=== PATIENT | female | born 1965 | race Two or more races ===

== ENCOUNTER → 2016-08-25 | Outpatient (CLI) | payer OTHER ==
[~2016-08-25] MED LIST: ACETA PO; BACL10TA2 PO; CLON0.5T PO; DICL75TA PO; FLUT11IN INH; HYDROCODONE PO; IBUPPOW25 PO; MOBI15TA PO; NAPR250T PO; NEUR300C PO; PROAAER IN; PROZ10CA7 PO; ROBA750T4 PO; SOMA250T PO; STRA10CA PO; ULTR50TA PO; ZANA4TAB PO; ZEST20TA8 PO; [UNRECOGNIZED DRUG - CODE] PO
--- NOTE | 2016-08-30 23:41 | ECWPNPC ---
PATIENT NAME: HARRIS HALL : 1965 GENDER: FEMALE VISIT DATE: 08/25/2016 DISCHARGE DATE: 08/25/16 1507 VISIT LOCKED DATE TIME: PHYSICIAN: ELENA SILVESTRE RESOURCE: ELENA SILVESTRE REASON FOR APPOINTMENT 1. NECK/BACK PAIN HISTORY OF PRESENT ILLNESS NEW PATIENT CONSULT: WHEN DID YOUR PAIN FIRST START? . BRIEFLY DESCRIBE HOW YOUR PAIN STARTED? . HOW DOES YOUR PAIN CHANGE WITH TIME? . DOES YOUR PAIN AWAKEN YOU FROM SLEEP? . HOW MANY HOURS OF SLEEP DO YOU NORMALLY GET? . ANY DIAGNOSTIC TESTING? . FACILITY WHERE TESTS WERE DONE? ____. PAIN TREATMENT TREATMENT YES CANCER HAVE YOU EVER HAD ANY TYPE OF CANCER?NO NO. PAIN SCREENING: PATIENT HAS A COMPLAINT OF ACUTE OR CHRONIC PAIN YES FALL RISK SCREENING: SCREENING :NO FALLS IN THE PAST YEAR ANDINO INVENTORY: QUESTIONNAIRE ASSESSEDYES SCORE VALUE CALCULATED NO SCORE: PT DID NOT COMPLETE BECKS. DENIES THOUGHTS OF SELF INJURY. STATES SHE FOLLOWS CLOSELY WITH HER PMD TODAY'S VISIT: NOTES: PATIENT WAS PREVIOUSLY FOLLOWED IN OUR PRACTICE BY DR. Cordell LEWIS AND OTONIEL WALLER-Maverick UNDER THE NAME HARRIS DEJESUS. SHE IS REFERRED TODAY BY HEBERT LECHUGA AT [facility] FOR NECK AND BACK PAIN. IS NOTING PAIN IN JOINTS OF HANDS AND LEFT KNEE. NOTES ARMS ARE WEAK IF REACHING OVER EHAD. LEGS GET TIRED WITH WALKING. ONSET OF INCREASED PAIN AND WEAKNESS SINCE LAST MARCH. HAS HAD NO TRAUMAS OR INJURIES. HAS NERVE CONDUCTION STUDY SCHEDULED FOR 09/25/15 AT OR[facility] AND FOLLOWUP IS SCHEDULED. HAS NUMBNESS AND TINGLING IN UPPER AND LOWER EXTREMITES. IS TAKING IBUPROFEN DAILY. TAKES SOME DOANS PILLS FOR PAIN WHICH CAN HELD WHICH CAN HELP. HAS PREVIOUS TRIED PT BUT HAD NO RELIEF. HAS HAD PREVIOUS INJECTION THERAPY BUT DID NOT RETURN WHEN RECENTLY AFTER LAST TREATMENT.. CURRENT MEDICATIONS TAKING METHOCARBAMOL 500 MG TABLET 1.5 TABLETS ORALLY EVERY 4 HRS TAKING VENTOLIN HFA 108 (90 BASE) MCG/ACT AEROSOL SOLUTION 2 PUFFS NEEDED INHALATION EVERY 4 HRS TAKING FLOVENT HFA 220 MCG/ACT AEROSOL 1 PUFF INHALATION TWICE A DAY TAKING KLONOPIN 1 MG TABLET 1 TABLET ORALLY QID TAKING MOBIC 15 MG TABLET 1 TABLET ORALLY ONCE A DAY TAKING GABAPENTIN 300 MG CAPSULE ORALLY TID TAKING METOPROLOL SUCCINATE 50 MG TABLET EXTENDED RELEASE ORALLY NOT-TAKING LISINOPRIL 5 MG TABLET ORALLY NOT-TAKING STRATTERA 60 MG CAPSULE 1 CAPSULE IN THE MORNING ORALLY ONCE A DAY MEDICATION LIST REVIEWED AND RECONCILED WITH THE PATIENT PAST MEDICAL HISTORY HYPERTENSION ANXIETY DEPRESSION ASTHMA PANIC DISORDER ADD ALLERGIES LAAVENDAR: RASH/SWELLING SURGICAL HISTORY TUBAL LIGATION FAMILY HISTORY FATHER: ARTHRITIS,CANCER,HEART DISEASE, THYROID DISEASEMOTHER: ARTHRITIS, CANCER,DIABETES, HYPERTENSION. SOCIAL HISTORY GENERAL: TOBACCO USE ARE YOU A:CURRENT SMOKER HOW MANY CIGARETTES A DAY DO YOU SMOKE?11-20 HOW SOON AFTER YOU WAKE UP DO YOU SMOKE YOUR FIRST CIGARETTE?6-30 MIN HOW OFTEN DO YOU SMOKE CIGARETTES?EVERY DAY PATIENT COUNSELED ON THE DANGERS OF TOBACCO USE AND URGED TO QUIT:08/25/2016 ARE YOU INTERESTED IN QUITTING?NOT READY TO QUIT COUNSELED THE PATIENT ON SMOKING EFFECTS, EDUCATION [id number]/17/2017 RECREATIONAL DRUG USE DRUG USE?NO CAFFEINE CAFFEINE USE?YES HOW OFTEN AND HOW MUCH? A CUP A DAY PSYCHOLOGICAL HX TREATMENTNO PAIN CLINIC PFS, CLERGY, PUBLIC HEALTH REFERRALS CLERGY REFERRAL NEEDED?NO WAS THE PROVIDER NOTIFIED OF ANY PERTINENT INFO?NO PFS REFERRAL NEEDED?NO PUBLIC HEALTH REFERRAL NEEDED?NO PATIENT: ____. ADVANCED DIRECTIVES HEALTH CARE PROXY?NO POWER OF AGRICULTURAL AND FORESTRY SUPERVISOR?NO HOSPITALIZATION/MAJOR DIAGNOSTIC PROCEDURE NO HOSPITALIZATION HISTORY. REVIEW OF SYSTEMS CONSTITUTIONAL: ANY CHANGE IN YOUR MEDICAL CONDITION? YES INCREASE TINGILING IN HANDS/ UNABLE TO LIFT . CHILLS NO . FEVER NO . INFECTION: DO YOU HAVE NEW INFECTIONS? NO . DO YOU HAVE HISTORY OF MRSA? NO . MUSCULOSKELETAL: ANY NEW PATTERNS OF PAIN OR NUMBNESS? YES . SYTEMIC LUPUS NO . GASTROENTEROLOGY: ANY NEW CHANGE IN BOWEL CONTROL? NO . BARRETTS ESOPHAGUS NO . CIRRHOSIS NO . HEPATITIS NO . LIVER FAILURE NO . ACID REFLUX NO . UNEXPLAINED WEIGHT LOSS NO . GENITOURINARY: ANY NEW CHANGE IN BLADDER CONTROL? NO . IS THERE A CHANCE YOU COULD BE ? NO . HEMATOLOGY/LYMPH: DO YOU TAKE ANY BLOOD THINNERS? (FOR EXAMPLE- COUMADIN, PLAVIX, AGGRENOX, PLATEL, PRADAXA, OR XARELTO) NO . WHEN WAS YOUR LAST DOSE? DATE: TIME: . LOW PLATELET COUNT NO . SICKLE CELL DISEASE NO . VON WILLIEBRANDS NO . FACTOR V LEIDEN NO . THALLASEMIA NO . ANEMIA NO . EASY BRUISING NO . NEUROLOGY: HAVE YOU FALLEN IN THE PAST 6 MONTHS? NO . ANY NEW EXTREMITY NUMBNESS OR WEAKNESS? NO . HEAD INJURY NO . DEMENTIA NO . CEREBRAL PALSY NO . MULTIPLE SCLEROSIS NO . DIZZINESS NO . HEADACHE NO . STROKES NO . VERTIGO NO . CARDIOLOGY: DO YOU HAVE A PACEMAKER OR DEFIBRILLATOR? NO . ANGINA NO . HEART ATTACK NO . HEART SURGERY NO . CONGESTIVE HEART FAILURE/FLUID OVERLOAD NO . CHEST PAIN NO . HIGH BLOOD PRESSURE NO . IRREGULAR HEART BEAT NO . RESPIRATORY: HAVE YOU BEEN SICK IN THE PAST WEEK? YES &QUOT; A SLIGHT COLD&QUOT; . FEVER NO . FLU LIKE SYMPTOMS? NO . CPAP NO . BYPAP NO . ASTHMA NO . EMPHYSEMA NO . CHRONIC LUNG DISEASES NO . SHORTNESS OF BREATH ON EXERTION NO . DO YOU USE ANY TYPE OF TOBACCO (SMOKE, SMOKELESS, CHEW)? YES - 1 PACK PER DAY . COUGH NO . SNORING NO . INTEGUMENTARY: DO YOU HAVE ANY RASHES OR OPEN SORES? YES - BACK OF NECK HANDS . ALLERGIC/IMMUNO: ARE YOU ALLERGIC TO SHELLFISH OR IV DYE? NO . ANY NEW ALLERGIES? NO . PSYCHIATRIC: DO YOU HAVE THOUGHTS OF HURTING YOURSELF OR SOMEONE ELSE? NO . ARE YOU ABUSED, NEGLECTED, OR IN AN UNSAFE ENVIRONMENT? NO . ENDOCRINOLOGY: ARE YOU DIABETIC? NO . THYROID DISORDER NO . OTHER: DO YOU NEED ANY PRESCRIPTIONS? NO . IF YES, PLEASE LIST: ____ . ANY NEW PROBLEMS WITH YOUR MEDICATIONS? NO . WHEN DID YOU LAST EAT? ____ . WHEN DID YOU LAST DRINK? ____ . WHAT DID YOU LAST DRINK? ____ . NAME OF PERSON DRIVING YOU HOME? ____ . DO YOU HAVE ANY OTHER QUESTIONS OR CONCERNS NO . PSYCHOLOGY: ANXIETY FOLLOWED BY DR CLEMENTINA GÓMEZ FOR PANIC ATTACKS . REVIEWED BY: PROVIDER: ELENA WALLER . VITAL SIGNS WT 153.6 LBS, HT 64 IN, BMI 26.36 INDEX, BP 120/74 MM HG, HR 88 /MIN, RR 18 /MIN, TEMP 98.0 F, OXYGEN SAT % 91%, REVIEWED BY: KGU. EXAMINATION GENERAL EXAMINATION: GENERAL APPEARANCE:MULTIPLE TATTOES. . PSYCHALERT , ORIENTED X 3 , PRESSURED SPEECH, VERY TALKATIVE - HARD TO KEEP ON SUBJECT. HEENT:NORMOCEPHALIC, NO LYMPHADENOPATHY, NO THYROMEGLY. LUNGS:CLEAR TO AUSCULTATION BILATERALLY, NO WHEEZES, RALES OR RHONCHI. HEART:HEART RATE REGULAR, NORMAL S1S2, NO MURMURS, CLICK OR RUBS, NO CAROTID BRUITS. MUSCULOSKELETAL:MUSCLE STRENGTH TESTING 5/5 BILATERAL UPPER AND LOWER EXTREMITIES. ABLE TO FLEX TO 90 DEGREES, EXTEND TO 20 DEGREES, NOTES PAIN IN NECK AND LOW BACK WITH ROTATION. TENDER WITH PALPATION OVER CERVICAL AND LUMBAR SPINOUS PROCESSES. , TRIGGER POINTS AND TIGHT FIBROUS BANDS IDENTIFIED OVER BILATERAL TRAPEZIUS MUSCLES AND ACROSS THE LUMBOSACRAL AXIS. NO SPECIFIC PAIN WITH SLR. NO PAIN WITH PELVIC COMPRESSION.. NEUROLOGIC EXAM:NO SENSORRY DEFICEIT TO LIGHT TOUCH. DTR'S 2+ BILATERAL UPPER AND LOWER EXTREMITIES. DIAGNOSTIC TESTS REVIEWEDXRAY OF LUMBAR SPINE COMPLETED 03/08/13 DEMONSTRATED DEGENERATIVE CHANGES WITH OSTEOPHYTES PRESENT FROM L3 THROUGH S1. MRI OF LUMBAR SPINE COMPLETED 06/30/16 DEMONSTRATED CENTRAL CANAL STENOSIS AT THE L4-5 LEVEL SECONDARY TO DISC BULGE, LIGAMENTOUS AND FACET HYPERTROPHY. THERE IS ALSO A DIFFUSE DISC BULGE AT THE L5-S1 LEVEL WITH MINIMAL THECAL SAC COMPRESSION. MRI OF CERVICAL SPINE COMPLETED ON 06/30/16 DEMONSTRATES CERVICAL SPONDYLOSIS AT THE C3-4 THROUGH C6-7 LEVELS MOST SIGNIFICANT AT THE C5-6 LEVEL WHERE THERE IS MINIMAL SPINAL COLD COMPRESSION. ASSESSMENTS LUMBAR FACET ARTHROPATHY - M12.88 (PRIMARY) LUMBAR DISC DISPLACEMENT WITHOUT MYELOPATHY - M51.26 OTHER CERVICAL DISC DISPLACEMENT AT C5-C6 LEVEL - M50.222 OTHER CERVICAL DISC DISPLACEMENT AT C6-C7 LEVEL - M50.223 OSTEOARTHRITIS OF MULTIPLE JOINTS, UNSPECIFIED OSTEOARTHRITIS TYPE - M15.9 FIBROMYALGIA - M79.7 TREATMENT LUMBAR FACET ARTHROPATHY REFILL GABAPENTIN TABLET, 400 MG, 1 TABLET, ORALLY, TID, 30 DAY(S), 90 TABLET, REFILLS 1 START DULOXETINE HCL CAPSULE DELAYED RELEASE PARTICLES, 30 MG, 1 CAPSULE, ORALLY, DAILY, 30 DAY(S), 30 CAPSULE, REFILLS 1 NOTES: WALK EVERY DAY. AIM FOR A DISTANCE OF 100 YARDS DAILY. KEEP CROCHETING. LUMBAR DISC DISPLACEMENT WITHOUT MYELOPATHY CAUDAL/LUMBAR EPIDURALELENA SILVESTRE 08/25/2016 2:49:51 PM > INTRALAMINAL PROCEDURE CODES FA211 ESTABILISHED PATIENT [facility] CHARGE DISPOSITION & COMMUNICATION FOLLOW UP AFTER INJECTION (REASON: CHECK AUTH FOR [facility] - INTRALAMINAL APPROACH) ELECTRONICALLY SIGNED BY MANINDER GEORGE ON 08/30/2016 AT 01:20 PM EDT DISCLAIMER : THIS IS A VISIT SUMMARY EXTRACTED FROM THE [employer]ICAL[employer] CHART. IT IS NOT A COPY OF THE [employer] PROGRESS NOTE. MTDD
== END ==
LOC: M PAIN 13:20
PROVIDERS: ATTEND Nurse Practitioner Family
DX: M12.88 Other specific arthropathies, not elsewhere classified, other specified site (principal); M51.26 Other intervertebral disc displacement, lumbar region; M50.222 Other cervical disc displacement at C5-C6 level; M50.223 Other cervical disc displacement at C6-C7 level; M79.7 Fibromyalgia; Z79.899 Other long term (current) drug therapy; Z91.048 Other nonmedicinal substance allergy status

== ENCOUNTER → 2016-09-04 | Outpatient (CLI) | payer OTHER ==
--- NOTE | 2016-09-04 23:20 | ECWPNPC ---
PATIENT NAME: HARRIS DELGADO : 1965 GENDER: FEMALE VISIT DATE: 09/04/2016 DISCHARGE DATE: 09/04/16 0000 VISIT LOCKED DATE TIME: PHYSICIAN: ELENA SILVESTRE RESOURCE: ELENA SILVESTRE REASON FOR APPOINTMENT 1. MEDS HISTORY OF PRESENT ILLNESS HISTORY OF PRESENT ILLNESS: PAIN THE PATIENT DESCRIBES THE PAIN... FALL RISK SCREENING: SCREENING :NO FALLS IN THE PAST YEAR TODAY'S VISIT: NOTES: HAS CALLED REPEATLY ABOUT MEDS NOT WORKING. STATES THAT WHEN SHE WAS TAKING THE GABAPENTIN AND THE CYMBALTA SHE FELT HER HEAD WASN'T RIGHT. SHE WAS INSTRUCTED TO STOP TAKING THE CYMBALTA BUT TODAY SHE SAYS SHE HAD ACTUALLY CONTINUED THE CYMBALTA. STATES IS IS NOT TAKING THE TRAMADOL PRESCRIBED BY HER PRIMARY CARE. BECAUSE, "IT DOESN'T WORK".STATES SHE WANTS IMMEDIATE RELIEF AND DOES NOT UNDERSTAND WHY SHE IS MADE TO SUFFER. [facility] PHARMACIST HAS TOLD HER THAT SHE CAN TAKE BOTH THE ETODOLAC AND THE MELOXICAM. WHEN TOLD THAT SHE SHOULD TAKE ONE OR THE OTHER SHE REPLIED THAT THE PHARMACIST KNOWS MORE THAN THAN WE DO. [facility] SHE CALLED HER INSURANCE COMPANY AND WAS TOLD LYRICA WOULD BE ALLOWED WITH A PRIOR AUTHORIZATION. PT'S ACCOMPANIES THE PATIENT TO HER VISIT TODAY.. CURRENT MEDICATIONS TAKING METHOCARBAMOL 500 MG TABLET 1.5 TABLETS ORALLY EVERY 4 HRS, NOTES: OUT OF IT TAKING VENTOLIN HFA 108 (90 BASE) MCG/ACT AEROSOL SOLUTION 2 PUFFS NEEDED INHALATION EVERY 4 HRS TAKING FLOVENT HFA 220 MCG/ACT AEROSOL 1 PUFF INHALATION TWICE A DAY TAKING KLONOPIN 1 MG TABLET 1 TABLET ORALLY QID TAKING MOBIC 15 MG TABLET 1 TABLET ORALLY ONCE A DAY TAKING METOPROLOL SUCCINATE 50 MG TABLET EXTENDED RELEASE ORALLY TAKING GABAPENTIN 400 MG TABLET 1 TABLET ORALLY QID TAKING DULOXETINE HCL 30 MG CAPSULE DELAYED RELEASE PARTICLES 1 CAPSULE ORALLY DAILY TAKING ETODOLAC 300 MG CAPSULE 1 CAPSULE ORALLY TWICE A DAY NOT-TAKING LISINOPRIL 5 MG TABLET ORALLY NOT-TAKING STRATTERA 60 MG CAPSULE 1 CAPSULE IN THE MORNING ORALLY ONCE A DAY MEDICATION LIST REVIEWED AND RECONCILED WITH THE PATIENT PAST MEDICAL HISTORY HYPERTENSION ANXIETY DEPRESSION ASTHMA PANIC DISORDER ADD ALLERGIES LAVENDAR: RASH/SWELLING SOCIAL HISTORY GENERAL: TOBACCO USE ARE YOU A:CURRENT SMOKER HOW MANY CIGARETTES A DAY DO YOU SMOKE?11-20 HOW SOON AFTER YOU WAKE UP DO YOU SMOKE YOUR FIRST CIGARETTE?6-30 MIN HOW OFTEN DO YOU SMOKE CIGARETTES?EVERY DAY PATIENT COUNSELED ON THE DANGERS OF TOBACCO USE AND URGED TO QUIT:09/04/2016 ARE YOU INTERESTED IN QUITTING?NOT READY TO QUIT COUNSELED THE PATIENT ON SMOKING EFFECTS, EDUCATION [id number]/27/2017 RECREATIONAL DRUG USE DRUG USE?NO CAFFEINE CAFFEINE USE?YES HOW OFTEN AND HOW MUCH? A CUP A DAY PSYCHOLOGICAL HX TREATMENTNO PAIN CLINIC PFS, CLERGY, PUBLIC HEALTH REFERRALS PFS REFERRAL NEEDED?NO CLERGY REFERRAL NEEDED?NO PUBLIC HEALTH REFERRAL NEEDED?NO WAS THE PROVIDER NOTIFIED OF ANY PERTINENT INFO?NO PATIENT: ____. ADVANCED DIRECTIVES HEALTH CARE PROXY?NO POWER OF PARTY PLANNER?NO REVIEW OF SYSTEMS CONSTITUTIONAL: ANY CHANGE IN YOUR MEDICAL CONDITION? NO . CHILLS NO . FEVER NO . INFECTION: DO YOU HAVE NEW INFECTIONS? NO . DO YOU HAVE HISTORY OF MRSA? NO . MUSCULOSKELETAL: ANY NEW PATTERNS OF PAIN OR NUMBNESS? YES, MIDDLE IF HER BACK IS STARTED ACHING AGAIN . GASTROENTEROLOGY: ANY NEW CHANGE IN BOWEL CONTROL? NO . GENITOURINARY: ANY NEW CHANGE IN BLADDER CONTROL? NO . IS THERE A CHANCE YOU COULD BE ? NO . HEMATOLOGY/LYMPH: DO YOU TAKE ANY BLOOD THINNERS? (FOR EXAMPLE- COUMADIN, PLAVIX, AGGRENOX, PLATEL, PRADAXA, OR XARELTO) NO . WHEN WAS YOUR LAST DOSE? DATE: TIME: . NEUROLOGY: HAVE YOU FALLEN IN THE PAST 6 MONTHS? YES, 3 TIMES-- LAST TIME 1 1/2 WEEKS AGO TRIPPED AT THE TOP OF THE STAIRS . ANY NEW EXTREMITY NUMBNESS OR WEAKNESS? NO . CARDIOLOGY: DO YOU HAVE A PACEMAKER OR DEFIBRILLATOR? NO . RESPIRATORY: HAVE YOU BEEN SICK IN THE PAST WEEK? NO . FEVER NO . FLU LIKE SYMPTOMS? NO . COUGH NO . INTEGUMENTARY: DO YOU HAVE ANY RASHES OR OPEN SORES? NO . ALLERGIC/IMMUNO: ARE YOU ALLERGIC TO SHELLFISH OR IV DYE? NO . ANY NEW ALLERGIES? NO . PSYCHIATRIC: DO YOU HAVE THOUGHTS OF HURTING YOURSELF OR SOMEONE ELSE? NO . ARE YOU ABUSED, NEGLECTED, OR IN AN UNSAFE ENVIRONMENT? NO . ENDOCRINOLOGY: ARE YOU DIABETIC? NO . OTHER: DO YOU NEED ANY PRESCRIPTIONS? NO . IF YES, PLEASE LIST: ____ . ANY NEW PROBLEMS WITH YOUR MEDICATIONS? NO . WHEN DID YOU LAST EAT? ____ . WHEN DID YOU LAST DRINK? ____ . WHAT DID YOU LAST DRINK? ____ . NAME OF PERSON DRIVING YOU HOME? ____ . DO YOU HAVE ANY OTHER QUESTIONS OR CONCERNS YES, NONE OF HER MEDICATIONS ARE WORKING FOR THE PAIN . REVIEWED BY: PROVIDER: ELENA WALLER . VITAL SIGNS WT 152.6 LBS, HT 64 IN, BMI 26.19 INDEX, BP 129/72 MM HG, HR 60 /MIN, RR 16 /MIN, TEMP 97.6 F, OXYGEN SAT % 100%, NA INITIALS SC 11:14, REVIEWED BY: AD. EXAMINATION GENERAL EXAMINATION: PSYCHVOICE LOUD, REPEATS SELF FREQUENTLY, AGITATED. LUNGS:NO COUGH, NO VISIBLE SHORTNESS OF BREATH. MUSCULOSKELETAL:MUSCLE STRENGTH TESTING 5/5 BILATERAL UPPER AND LOWER EXTREMTIES. RISES EASILY TO STANDING POSITION. GAIT NONANTALGIC. NO VISIBLE ISSUES WITH BALANCE. ASSESSMENTS LUMBAR FACET ARTHROPATHY - M12.88 (PRIMARY) LUMBAR DISC DISPLACEMENT WITHOUT MYELOPATHY - M51.26 OTHER CERVICAL DISC DISPLACEMENT AT C5-C6 LEVEL - M50.222 OTHER CERVICAL DISC DISPLACEMENT AT C6-C7 LEVEL - M50.223 OSTEOARTHRITIS OF MULTIPLE JOINTS, UNSPECIFIED OSTEOARTHRITIS TYPE - M15.9 FIBROMYALGIA - M79.7 TREATMENT LUMBAR FACET ARTHROPATHY START LYRICA CAPSULE, 75 MG, 1 CAPSULE, ORALLY, TWICE A DAY, 30 DAY(S), 60 CAPSULE, REFILLS 1 NOTES: PT INSTRUCTED TO TAKE ONLY MELOXICAM OR ETODOLAC, NOT BOTH. PT INSTRUCTED THAT LYRICA WILL NOT HAVE AN IMMEDIATE EFFECT, AND THAT WITH STARTING IT SHE WOULD HAVE TO STOP THE GABAPENTIN. DISCUSSED WITH THE PATIENT ANDHER THAT THIS CLINIC WOULD NOT BE PLACING HER ON ANY OPIODS THIS IS NOT THE STANDARD OF CARE FOR THE TREATMENT OF FIBROMYALGIA OR OSTEOARTHRITIS. REVIEWED WITH HER THAT ALL MEDS WOULD TAKE TIME TO BE AT THEIR MOST EFFECTIVE AND THAT THERE IS NO MEDICATION THAT WILL "MAKE ALL THE PSIN STOP". PT REMINDED THAT SHE HAS AN INJECTION SCHEDULED. AT THE END OF THE VISIT SHE STATED THAT SINCE I WAS NOT GOING TO "GIVE HER A MEDICINE WHICH WOULD WORK IMMEDIATELY TO TAKE ALL HER PAIN AWAY THAT SHE WOULD GO TO THE PAIN PROVIDERS IN [place] AND THAT SHE WOULD NOT BE COMING BACK FOR AN INJECTION. SHE DID NOT STOP AT THE CHECK OUT WINDOW FOR HER PAPERWORK. ZECHARIAH CASTELLANOS ACCOMPANIED ME IN THE ROOM FOR THIS ENTIRE VISIT. PROCEDURE CODES FA211 ESTABILISHED PATIENT [facility] CHARGE DISPOSITION & COMMUNICATION ELECTRONICALLY SIGNED BY MANINDER GEORGE ON 09/04/2016 AT 01:13 PM EDT DISCLAIMER : THIS IS A VISIT SUMMARY EXTRACTED FROM THE [employer] CHART. IT IS NOT A COPY OF THE [employer] PROGRESS NOTE. EDITH
== END ==
LOC: M PAIN 11:00
PROVIDERS: ATTEND Nurse Practitioner Family
DX: M12.88 Other specific arthropathies, not elsewhere classified, other specified site (principal); M51.26 Other intervertebral disc displacement, lumbar region; M50.222 Other cervical disc displacement at C5-C6 level; M50.223 Other cervical disc displacement at C6-C7 level; M79.7 Fibromyalgia; Z79.899 Other long term (current) drug therapy; F17.210 Nicotine dependence, cigarettes, uncomplicated; Z91.048 Other nonmedicinal substance allergy status

== ENCOUNTER 2017-06-12 10:31 | Emergency (ER) | payer SELFPAY, OTHER ==
[2017-06-12] MEDS: clonazePAM 1 MG TAB PO (11:33)
== END 2017-06-12 13:04 | disposition home or self-care (01) ==
LOC: M ED 10:31
DX: F41.1 Generalized anxiety disorder (principal); F17.200 Nicotine dependence, unspecified, uncomplicated; I10 Essential (primary) hypertension
CPT/HCPCS: 93005

== ENCOUNTER → 2018-06-28 | Outpatient (REF) | payer OTHER, MEDICAID ==
[~2018-06-28] MED LIST changes: -CLON0.5T PO; +CLON0.5T8 PO; +KLON1TAB PO
[2018-06-28 09:58] LABS: HEMATOCRIT 46.8 % (36.0-47.0); HEMOGLOBIN 15.6 g/dl (12.0-15.5); MEAN CORPUSCULAR HEMOGLOBIN 33.1 pg (27.0-33.0); MEAN CORPUSCULAR HGB CONC 33.3 g/dl (32.0-36.5); MEAN CORPUSCULAR VOLUME 99.2 fl (80.0-96.0); PLATELET COUNT, AUTOMATED 360 10^3/uL (150-450); RED BLOOD COUNT 4.72 10^6/uL (4.00-5.40); WHITE BLOOD COUNT 5.2 10^3/uL (4.0-10.0)
[2018-06-28 10:38] LABS: ALBUMIN 4.3 GM/DL (3.2-5.2); ALT/SGPT 83 U/L (12-78); BILIRUBIN,TOTAL 0.3 MG/DL (0.2-1.0); BLOOD UREA NITROGEN 16 MG/DL (7-18); CALCIUM LEVEL 9.1 MG/DL (8.5-10.1); CARBON DIOXIDE LEVEL 27 MEQ/L (21-32); CHLORIDE LEVEL 106 MEQ/L (98-107); CHOLESTEROL LEVEL 244 MG/DL (<200); CHOLESTEROL RISK RATIO 2.623 (<5); CREATININE FOR GFR 0.65 MG/DL (0.55-1.30); FREE T4 0.65 NG/DL (0.76-1.46); GLOMERULAR FILTRATION RATE > 60.0 (>51); GLUCOSE, FASTING 83 MG/DL (70-100); HDL CHOLESTEROL 93 MG/DL (>40); LDL CHOLESTEROL 137 MG/DL (<100); NON-HDL-C 151 MG/DL; POTASSIUM SERUM 4.8 MEQ/L (3.5-5.1); SODIUM LEVEL 139 MEQ/L (136-145); TOTAL PROTEIN 7.5 GM/DL (6.4-8.2); TRIGLYCERIDES LEVEL 70 MG/DL (<150)
[2018-06-28 10:50] LABS: TOTAL 25(OH) VITAMIN D 18.4 NG/ML (30.0-100.0)
== END ==
LOC: M SFHCPLAZ 07:56
PROVIDERS: ATTEND Physician Assistant
DX: F32.9 Major depressive disorder, single episode, unspecified (principal); Z13.220 Encounter for screening for lipoid disorders; E55.9 Vitamin D deficiency, unspecified

== ENCOUNTER 2020-02-25 18:12 | Emergency (ER) | payer MEDICAID, OTHER ==
[2020-02-25] VITALS (7 sets, daily range): BP systolic 105–139; BP diastolic 55–75
[~2020-02-25 18:12] MED LIST changes: +CLON0.5T2 PO; -CLON0.5T8 PO
[2020-02-25] MEDS ORDERED: ONDANSETRON 4MG/2ML VIAL IV ONE (18:30)
[2020-02-25] MEDS ORDERED: PANTOPRAZOLE 40MG VIAL (C9113 PER 1) IV ONE (18:30)
[2020-02-25] MEDS ORDERED: NS 1,000 ML IV ONE (18:30)
[2020-02-25 19:17] LABS: INR 1.96; PROTHROMBIN TIME 22.7 SECONDS (11.8-14.0)
[2020-02-25 19:18] LABS: PARTIAL THROMBOPLASTIN TIME 31.9 SECONDS (25.0-38.4)
[2020-02-25 19:23] LABS: MEAN CORPUSCULAR HEMOGLOBIN 31.4 pg (27.0-33.0); MEAN CORPUSCULAR HGB CONC 28.6 g/dl (32.0-36.5); PLATELET COUNT, AUTOMATED 535 10^3/uL (150-450)
[2020-02-25 19:25] LABS: HEMATOCRIT 7.7 % (36.0-47.0); HEMOGLOBIN 2.2 g/dl (12.0-15.5); WHITE BLOOD COUNT 32.2 10^3/uL (4.0-10.0)
[2020-02-25 19:32] LABS: ALBUMIN 2.2 GM/DL (3.2-5.2); ALT/SGPT 150 U/L (12-78); BILIRUBIN,DIRECT < 0.1 MG/DL (0.0-0.2); BILIRUBIN,TOTAL 0.2 MG/DL (0.2-1.0); BLOOD UREA NITROGEN 25 MG/DL (7-18); CALCIUM LEVEL 8.4 MG/DL (8.5-10.1); CARBON DIOXIDE LEVEL 4 MEQ/L (21-32); CHLORIDE LEVEL 100 MEQ/L (98-107); CK-MB VALUE MASS 16.5 NG/ML (<3.6); CPK CREATINE PHOSPHOKINASE 466 U/L (26-192); ETHYL ALCOHOL (ETHANOL) < 0.003 % (0.000-0.010); GLOMERULAR FILTRATION RATE 33.5 (>51); GLUCOSE, FASTING 221 MG/DL (70-100); LIPASE 368 U/L (73-393); MB/CK RELATIVE INDEX 3.54 (< OR =4); POTASSIUM SERUM 3.9 MEQ/L (3.5-5.1); SODIUM LEVEL 134 MEQ/L (136-145); TOTAL PROTEIN 4.7 GM/DL (6.4-8.2); TROPONIN I 0.31 NG/ML (< 0.10)
[2020-02-25 19:40] LABS: BASOPHILS 1 % (0-1); LYMPHOCYTES 27 % (16-44); METAMYELOCYTES 3 % (0-0); MONOCYTES 1 % (0-5); MYELOCYTES 2 % (0-0); NEUTROPHILS 60 % (28-66); PLATELET ESTIMATE INCREASED (NORMAL); PROMYELOCYTES 1 % (0-0)
[2020-02-25 19:43] LABS: ANISOCYTOSIS 1+; CRENATED RBC 1+; HYPOCHROMASIA 2+; POLYCHROMASIA 3+; TEAR DROP CELLS 1+
[2020-02-25] MEDS ORDERED: MORPHINE 2 MG/ML 1ML VIAL (J2270) IV ONE (20:45)
[2020-02-25] MEDS ORDERED: LORazepam 2 MG/ML VIAL IV STA (21:04)
--- NOTE | 2020-02-28 11:25 | ECGEPIP ---
[facility] - ED Test Date: 2020-02-25 Pat Name: HARRIS DIAMOND Department: Room: - Gender: Female Science Faculty Member: : 1965 Requested By: REGGIE WALLER Order Number: [id number] Reading MD: Miki Chambers Measurements Intervals [place] Rate: 95 P: 79 SC: 181 QRS: 16 QRSD: 102 T: 39 QT: 384 QTc: 484 Interpretive Statements SINUS RHYTHM INCOMPLETE RIGHT BUNDLE BRANCH BLOCK NSTTW ABNORMALITIES SIMILAR TO 06/12/17 Electronically Signed on 02-28-2020 11:24:45 EDT by Miki Chambers
--- NOTE | 2020-03-10 11:30 | REP ---
CT ABDOMEN AND PELVIS WITHOUT INTRAVENOUS (IV) OR ORAL CONTRAST (REPEAT DICTATION) HISTORY: Abdominal pain, GI bleed. Preliminary report is provided at the time of exam by [facility]. CT FINDINGS: Preliminary digital buckle stapler radiograph demonstrates an unremarkable bowel gas pattern. The lung bases are clear on axial CT images. The liver and the spleen are normal in size and homogeneous in texture. The cardiac chambers and blood pool shows hypodensity compared to ventricular myocardium, which can be a feature of anemia. There is moderate fluid and gas distention of the stomach. No abnormality is noted in the gallbladder or pancreas. No adrenal lesion is seen on either side. The kidneys are morphologically intact. No hydronephrosis is seen. There is no evidence of abdominal wall defect. No ascites seen. There is tlks-[id number]-odiybbon mural thickening affecting the sigmoid colon and distal descending colon. There is diverticulosis. Changes are compatible with enterocolitis, less likely diverticulitis. No uterine or ovarian abnormality is seen. Urinary bladder appears intact. No evidence of free intraperitoneal air or bowel obstruction. IMPRESSION: Mural thickening left colon with left colonic diverticulosis as above. Possible enterocolitis versus diverticulitis. Question anemia. Gastric distention is also noted. MTDD
== END 2020-02-25 22:11 | disposition short-term general hospital (02) ==
LOC: EDBD 18:12 → M ED 18:12
DX: K92.2 Gastrointestinal hemorrhage, unspecified (principal); K92.1 Melena; D64.9 Anemia, unspecified; R09.02 Hypoxemia; D72.829 Elevated white blood cell count, unspecified; R94.31 Abnormal electrocardiogram [ECG] [EKG]; K57.30 Diverticulosis of large intestine without perforation or abscess without bleeding; I10 Essential (primary) hypertension; J45.909 Unspecified asthma, uncomplicated; F17.200 Nicotine dependence, unspecified, uncomplicated
CPT/HCPCS: 36415; 74176; 80048; 80076; 82550; 82553; 83690; 84484; 85025; 85610; 85730; 86850; 86900; 86901; 86920; 93005; 93041; 96361; 96374; 96375; 99285; C9113; G0480; J2060; J2270; J2405; P9016

== ENCOUNTER → 2020-07-21 | Outpatient (REF) | payer OTHER | LOC: EEVIPCON 16:29 → M LAB REF 16:29 | PROVIDERS: ATTEND Physician Assistant | DX: L03.119 Cellulitis of unspecified part of limb (principal) ==

== ENCOUNTER 2022-01-13 16:02 | Emergency (ER) | payer OTHER ==
[~2022-01-13] VITALS: Ht 167.6 cm; Wt 91.7 kg
[2022-01-13 16:04] VITALS: BP 166/94
== END 2022-01-13 17:00 | disposition left against medical advice (07) ==
LOC: M ED 16:02
DX: Z53.29 Procedure and treatment not carried out because of patient's decision for other reasons (principal)

== ENCOUNTER → 2022-01-24 | Outpatient (CLI) | payer OTHER | LOC: M RAD 15:28 | PROVIDERS: ATTEND Nurse Practitioner Family | DX: F17.210 Nicotine dependence, cigarettes, uncomplicated (principal) ==

== ENCOUNTER → 2022-01-26 | Outpatient (CLI) | payer OTHER ==
[2022-01-26 11:29] LABS: BASO # 0.1 10^3/uL (0.0-0.2); BASO % 0.9 % (0.0-1.0); EOS # 0.3 10^3/uL (0.0-0.5); EOS % 3.6 % (0.0-3.0); HEMATOCRIT 39.1 % (36.0-47.0); HEMOGLOBIN 12.8 g/dl (12.0-15.5); LYMPH # 1.6 10^3/uL (1.5-5.0); LYMPH % 23.8 % (24.0-44.0); MEAN CORPUSCULAR HEMOGLOBIN 35.1 pg (27.0-33.0); MEAN CORPUSCULAR HGB CONC 32.7 g/dl (32.0-36.5); MEAN CORPUSCULAR VOLUME 107.1 fl (80.0-96.0); MONO # 0.8 10^3/uL (0.0-0.8); MONO % 10.9 % (2.0-8.0); NEUTROPHILS # 4.1 10^3/uL (1.5-8.5); NEUTROPHILS % 60.2 % (36.0-66.0); PLATELET COUNT, AUTOMATED 322 10^3/uL (150-450); RED BLOOD COUNT 3.65 10^6/uL (4.00-5.40); WHITE BLOOD COUNT 6.9 10^3/uL (4.0-10.0)
[2022-01-26 12:01] LABS: ALT/SGPT 53 U/L (12-78); BILIRUBIN,TOTAL 0.2 MG/DL (0.2-1.0); BLOOD UREA NITROGEN 9 MG/DL (7-18); CALCIUM LEVEL 8.7 MG/DL (8.5-10.1); CARBON DIOXIDE LEVEL 26 MEQ/L (21-32); CHLORIDE LEVEL 106 MEQ/L (98-107); CHOLESTEROL LEVEL 269 MG/DL (<200); CREATININE FOR GFR 0.73 MG/DL (0.55-1.30); GLOMERULAR FILTRATION RATE > 60.0 (>51); GLUCOSE, FASTING 90 MG/DL (70-100); POTASSIUM SERUM 5.1 MEQ/L (3.5-5.1); SODIUM LEVEL 138 MEQ/L (136-145); TRIGLYCERIDES LEVEL 226 MG/DL (<150)
[2022-01-26 12:02] LABS: ALBUMIN 3.7 GM/DL (3.2-5.2); C REACTIVE PROTEIN QUANTITATIV 0.46 MG/DL (0.00-0.30); CHOLESTEROL RISK RATIO 4.409 (<5); HDL CHOLESTEROL 61 MG/DL (>40); LDL CHOLESTEROL 163 MG/DL (<100); NON-HDL-C 208 MG/DL; RHEUMATOID FACTOR QUANT < 10.0 IU/ML (<15.0)
[2022-01-26 12:13] LABS: ERYTHROCYTE SEDIMENTATION RATE 11 mm/hr (0-30)
[2022-01-27 23:12] LABS: ANA (HEP2) Positive (.); IgG P18 AB Absent (.); IgG P23 AB Absent (.); IgG P28 AB Absent (.); IgG P30 AB Absent (.); IgG P39 AB Absent (.); IgG P41 AB Absent (.); IgG P45 AB Absent (.); IgG P66 AB Absent (.); IgG P93 AB Absent (.); IgM P23 AB Absent (.); IgM P39 AB Absent (.); IgM P41 AB Absent (.); LYME IgG WB INTERPRETATION Negative (.); LYME IgM WB INTERPRETATION Negative (.)
== END ==
LOC: M LAB 09:30
PROVIDERS: ATTEND Nurse Practitioner Family
DX: I10 Essential (primary) hypertension (principal); M79.10 Myalgia, unspecified site

== ENCOUNTER → 2022-02-09 | Outpatient (REF) | payer OTHER | LOC: M LAB REF 17:30 | PROVIDERS: ATTEND Nurse Practitioner Family | DX: Z12.4 Encounter for screening for malignant neoplasm of cervix (principal); R87.810 Cervical high risk human papillomavirus (HPV) DNA test positive ==

== ENCOUNTER → 2022-04-03 | Outpatient (CLI) | payer OTHER | LOC: M WHC 08:17 | PROVIDERS: ATTEND Nurse Practitioner Family | DX: N63.10 Unspecified lump in the right breast, unspecified quadrant (principal) ==

== ENCOUNTER → 2022-04-25 | Outpatient (CLI) | payer OTHER ==
[~2022-04-25] MED LIST changes: +**SFHN** LIDOCAINE 1% MDV 20ML VIAL ONE; +**SFHN** SODIUM BICARBONATE 8.4% 10MEQ 10ML VIAL ONE; +GABA-283 PO; +HYDR-3363 PO; +LEXA1TAB PO; +VALS80TA PO; +VENTAER INH
[2022-04-25 14:18] VITALS: BP 136/72
== END ==
LOC: M WHCPRO 12:30
PROVIDERS: ATTEND Surgery
DX: R92.8 Other abnormal and inconclusive findings on diagnostic imaging of breast (principal); N63.11 Unspecified lump in the right breast, upper outer quadrant

== ENCOUNTER → 2022-05-16 | Outpatient (CLI) | payer OTHER ==
[~2022-05-16] MED LIST changes: -**SFHN** LIDOCAINE 1% MDV 20ML VIAL ONE; -**SFHN** SODIUM BICARBONATE 8.4% 10MEQ 10ML VIAL ONE
[2022-05-16 16:09] LABS: ALBUMIN 3.8 G/DL (3.2-5.2); ALKALINE PHOSPHATASE 124 U/L (46-116); ALT/SGPT 69 U/L (7.0-40); AST/SGOT 58 U/L (<34); BILIRUBIN,DIRECT < 0.1 MG/DL (<0.4); BILIRUBIN,TOTAL 0.2 MG/DL (0.3-1.2); CHOLESTEROL LEVEL 277 MG/DL (<200); CHOLESTEROL RISK RATIO 4.34 (<5); HDL CHOLESTEROL 63.7 MG/DL (>40); LDL CHOLESTEROL 144.1 MG/DL (<100); NON-HDL-C 213 MG/DL; TOTAL PROTEIN 7.3 G/DL (5.7-8.2); TRIGLYCERIDES LEVEL 346 MG/DL (<150)
== END ==
LOC: M RAD 15:01
PROVIDERS: ATTEND Family Medicine
DX: E78.2 Mixed hyperlipidemia (principal); M19.90 Unspecified osteoarthritis, unspecified site; M25.511 Pain in right shoulder

== ENCOUNTER → 2022-08-21 | Outpatient (CLI) | payer BC, OTHER ==
[2022-08-21 11:06] LABS: ALBUMIN 4.1 G/DL (3.2-5.2); BILIRUBIN,DIRECT 0.1 MG/DL (<0.4); BILIRUBIN,TOTAL 0.3 MG/DL (0.3-1.2); CHOLESTEROL RISK RATIO 2.99 (<5); HDL CHOLESTEROL 90.1 MG/DL (>40); LDL CHOLESTEROL 149.1 MG/DL (<100); NON-HDL-C 179.9 MG/DL; TOTAL PROTEIN 7.2 G/DL (5.7-8.2)
== END ==
LOC: M LAB 09:57
PROVIDERS: ATTEND Family Medicine
DX: E78.2 Mixed hyperlipidemia (principal)

== ENCOUNTER → 2022-12-21 | Outpatient (CLI) | payer OTHER ==
[~2022-12-21] MED LIST changes: +ACET650T61 PO; +ADV250INH INH; +ATOM40CA16 PO; +ATOR1TAB19 PO; +CETI10CH PO; +LOSA100T8 PO; +TIZA2CAP PO; +VENL150C43 PO
[2022-12-21 10:25] LABS: HEMOGLOBIN A1c 5.1 % (4.0-6.0)
[2022-12-21 10:35] LABS: ALBUMIN 3.9 G/DL (3.2-5.2); ALKALINE PHOSPHATASE 129 U/L (46-116); ALT/SGPT 34 U/L (7.0-40); AST/SGOT 28 U/L (<34); BILIRUBIN,TOTAL < 0.2 MG/DL (0.3-1.2); BLOOD UREA NITROGEN 47 MG/DL (9-23); CALCIUM LEVEL 10.1 MG/DL (8.5-10.1); CARBON DIOXIDE LEVEL 18 MMOL/L (20-31); CHLORIDE LEVEL 100 MMOL/L (98-107); CHOLESTEROL LEVEL 236 MG/DL (<200); CHOLESTEROL RISK RATIO 3.94 (<5); CREATININE FOR GFR 2.14 MG/DL (0.55-1.30); GLOMERULAR FILTRATION RATE 25.5 (>51); GLUCOSE, FASTING 79 MG/DL (60-100); HDL CHOLESTEROL 59.8 MG/DL (>40); LDL CHOLESTEROL 126.8 MG/DL (<100); NON-HDL-C 176.2 MG/DL; POTASSIUM SERUM 3.8 MMOL/L (3.5-5.1); SODIUM LEVEL 131 MMOL/L (136-145); TOTAL PROTEIN 7.5 G/DL (5.7-8.2); TRIGLYCERIDES LEVEL 247 MG/DL (<150)
== END ==
LOC: M LAB 09:20
PROVIDERS: ATTEND Registered Nurse
DX: I10 Essential (primary) hypertension (principal); E78.2 Mixed hyperlipidemia

== ENCOUNTER → 2023-01-22 | Outpatient (CLI) | payer OTHER ==
[~2023-01-22] MED LIST changes: -GABA-283 PO; +GABA-284 PO
[2023-01-22 09:39] LABS: ALKALINE PHOSPHATASE 125 U/L (46-116); ALT/SGPT 37 U/L (7.0-40); AST/SGOT 30 U/L (<34); BILIRUBIN,TOTAL 0.4 MG/DL (0.3-1.2); BLOOD UREA NITROGEN 16 MG/DL (9-23); CARBON DIOXIDE LEVEL 22 MMOL/L (20-31); CHLORIDE LEVEL 106 MMOL/L (98-107); CREATININE FOR GFR 0.77 MG/DL (0.55-1.30); GLOMERULAR FILTRATION RATE > 60.0 (>51); GLUCOSE, FASTING 99 MG/DL (60-100); POTASSIUM SERUM 4.8 MMOL/L (3.5-5.1); SODIUM LEVEL 138 MMOL/L (136-145); TOTAL PROTEIN 7.3 G/DL (5.7-8.2)
== END ==
LOC: M LAB 08:48
PROVIDERS: ATTEND Registered Nurse
DX: R94.4 Abnormal results of kidney function studies (principal)